=== PATIENT | female | born 1950 ===

== ENCOUNTER → 2023-11-26 12:51 | Outpatient (BNVA) | payer BC, SELFPAY | PROVIDERS: Visit Provider Physician Assistant Surgical ==

== ENCOUNTER 2024-03-09 08:11 | Outpatient (AMB) | payer BC, SELFPAY ==
--- NOTE | 2024-03-09 08:47 | A.OFFVIS_ITS ---
VS Expanded 03/09/24 09:08 Height 5 ft 6 in Weight 240 lb 8 oz BMI 38.8 Body Fat % 46.2 Body Fat Mass 111.2 Fat Free Mass 129.6 Visceral Fat Rating 16 Body Water % 38 Body Water Mass 91.4 Basal Metabolic Rate/Score 1,809 Intake Visit Reasons: TV Revision SWL BMI 38.9 Allergies No Known Allergies Allergy (Verified 03/09/24 08:47) Medication List - Last Reconciled 03/09/24 by Gregory Cesar MD calcium carbonate (Calcium 500) 500 mg PO DAILY citalopram 20 mg PO DAILY estradiol (Yuvafem) 10 mcg vaginal 2XW multivit w-min #14-folic acid 1 mg tabs PO hohszvmuoapq-Hk-lbni-minerals tabs PO HPI HPI TV Revision SWL BMI 38.9: Details: Start time: 8.38am, End time: 9.26am ?I spent 43 minutes speaking with the patient on the phone plus an additional 5 minutes reviewing and updating records for a total of 48 minutes HPI Comments Details: Previous weight loss efforts: Lap gastric bypass (Dr. Dong, [facility]) Wakes up: 6am, Sleeps: 9pm Breakfast: 9am (2 eggs with bread spread, fruits, [employer] premade shake) Lunch: skips Dinner: 5pm (chicken, green beans). Can eat about 10 forks Snacks: 2pm (cheese squares, berries), 7-8pm (popcorn) Exercise: 3 1-hour classes per week Fluids: Coffee: 3 cups/day (creamer and equal), tea: iced tea: 2 cups per day zero calories, soda: none, juice: none, ETOH: none PFSH Medical History (Updated 03/09/24 @ 09:18 by Gregory Cesar MD) DJD (degenerative joint disease) Depression Surgical History (Updated 11/27/23 @ 09:34 by Edilma Lozada CMA) Hx of cardiac catheterization Hx of colonoscopy History of surgery on arm History of right knee joint replacement History of left knee replacement Hx of gastric bypass History of 2 sections Family History (Updated 11/27/23 @ 10:41 by Edilma Lozada CMA) Mother Breast cancer Social History (Updated 11/27/23 @ 10:41 by Edilma Lozada CMA) Alcohol intake: never Patient Tobacco Use Status: Never used Tobacco Telehealth Telehealth Telehealth Platform: Telephone Location of provider rendering services: practice address Location of patient: address on file Patient Identification confirmed using: Name, : Yes Telehealth method: voice only Patient verbally consented to treatment: Yes Patient verbally consented to billing insurance company: Yes Patient informed of any privacy concerns related to visit: Yes Minutes spent on Phone/Video with Pt.: 48 Assessment & Plan Assessment & Plan (1) Obesity: Code(s): E66.9 - Obesity, unspecified Category: Medical Qualifiers: Obesity type: due to excess calories Obesity classification: adult class 2 (BMI 35 - 39.9) Serious obesity comorbidity presence: without serious comorbidity Body mass index: BMI 38.0-38.9 Qualified Code(s): E66.09 - Other obesity due to excess calories; Z68.38 - Body mass index [BMI] 38.0-38.9, adult Plan: 1.? Plan for lap sleeve gastrectomy of the gastric pouch if anatomy allows it. If diaphragmatic or ventral hernias are present at time of surgery, these will be repaired laparoscopically as well. Risks and complications include possible conversion to an open procedure, anastomotic leak, bleeding requiring transfusion, small bowel obstruction, , DVT and pulmonary embolism, cardiac, or pulmonary complications, as exterminator termite complications such as anastomotic ulcer, insufficient weight loss and vitamin deficiencies. I emphasized the importance of close follow-up, adherence to instructions and good communication. 2. You will receive a link of our software patricia to generate an individualized nutritional and exercise plan specific for you. Please send me a screenshot of the plans you will generate Meal to include lean meat (beef, fish, pork, turkey, chicken), or italian yogurt, or egg whites, or beans with a salad with olive oil and fruits (berries, pears, apples, kiwi). Avoid salt, breads, potatoes, rice, pasta, desserts. ?3. If you choose shakes, each shake would be drunk slowly, like coffee in a period of 2 hours. ?4. If you choose bars, cut each bar in 4 pieces and eat each piece in 30min ?to make each bar last 2 hours. ?5. I emphasized the importance of measuring accurately the food portion and measure it when serving the food in plate ?6. The meal portions include a specific number of forks of meat and salad. You always eat the meat portion but you can replace up to half of salad/vegetables portion with rice, potatoes or pasta, or a fruit ?if you like. The less you do it the better weight loss will be. ?7. One full-size fork is what it can be scooped on the fork without falling aside and not what can be bit with the fork. Use regular forks like those you find in a typical restaurant. ?8.? Please send me weight measurements as soon as possible and then once a week. Always include your diet and exercise plan. 9. The best choice would be to purchase a stationary bike, elliptical or treadmill at home that can track calories. Let me know if you do so I can give you an exercise plan. ?10.?Goal is to lose at least 1.5-2lbs per week ?11. Goal to lose 10% of your weight before surgery, which is about 24lbs. Ultimate weight goal: 216lbs before surgery 12. Please follow the diet plan exactly without any change. If you don't like something about the plan or you feel hungry you need to communicate with me so I can help you revise the plan. You should not change the plan yourself. 13. To be scheduled for EGD due to history of gastric bypass. The possibility of biopsies was discussed. Patient needs to avoid use of NSAIDs and aspirin for 1 week prior to EGD. Risks of perforation and? bleeding was discussed with the patient. This will be an outpatient procedure with IV sedation.
[2024-03-09 09:08] VITALS: BMI 38.8
== END 2024-03-09 09:27 | disposition home or self-care (01) ==
LOC: HO.HBS 08:11
PROVIDERS: PCP Internal Medicine; Visit Provider Surgery
DX: E66.09 Other obesity due to excess calories (principal); Z68.38 Body mass index [BMI] 38.0-38.9, adult
CPT/HCPCS: 99204

== ENCOUNTER → 2024-03-09 08:11 | Outpatient (BNVA) | payer BC, SELFPAY | PROVIDERS: PCP Internal Medicine; Visit Provider Surgery ==